=== PATIENT | female | born 1975 | race Caucasian/White ===

== ENCOUNTER 2022-05-28 11:46 | Emergency (ER) | payer MEDICAID ==
[~2022-05-28] VITALS: Ht 170.2 cm; Wt 58.8 kg
[2022-05-28] MEDS ORDERED: MEDDOSEPAK PO (15:46)
[2022-05-28] MEDS ORDERED: METHOCARBAMOL500 MG PO (15:46)
[2022-05-28] MEDS ORDERED: NAPROXEN500 MG PO (15:46)
[2022-05-28 15:58] VITALS: BP 116/79
== END 2022-05-28 15:58 | disposition home or self-care (01) ==
LOC: ED 11:46
DX: S16.1XXA Strain of muscle, fascia and tendon at neck level, initial encounter (principal); X58.XXXA Exposure to other specified factors, initial encounter